=== PATIENT | female | born 1945 ===

== ENCOUNTER → 2017-09-22 13:51 | Outpatient (REF) | payer MEDICARE, OTHER, SELFPAY | LOC: LAB 13:51 | PROVIDERS: Visit Provider Otolaryngology Facial Plastic Surgery | DX: J30.89 Other allergic rhinitis (principal); J34.2 Deviated nasal septum; J34.89 Other specified disorders of nose and nasal sinuses | CPT/HCPCS: 87070; 87075; 87077; 87147; 87186; 87205 ==

== ENCOUNTER → 2017-12-22 13:36 | Outpatient (REF) | payer MEDICARE, OTHER, SELFPAY | LOC: LAB 13:36 | PROVIDERS: Visit Provider Otolaryngology | DX: J34.2 Deviated nasal septum (principal); J34.89 Other specified disorders of nose and nasal sinuses; J34.0 Abscess, furuncle and carbuncle of nose | CPT/HCPCS: 87070; 87077 ==

== ENCOUNTER → 2018-02-10 14:39 | Outpatient (REF) | payer MEDICARE, OTHER, SELFPAY | LOC: LAB 14:39 | PROVIDERS: Visit Provider Otolaryngology Facial Plastic Surgery | DX: J34.2 Deviated nasal septum (principal); J34.89 Other specified disorders of nose and nasal sinuses; J34.0 Abscess, furuncle and carbuncle of nose | CPT/HCPCS: 87070 ==